=== PATIENT | female | born 1995 | race Caucasian/White ===

== ENCOUNTER 2017-12-22 05:42 | Outpatient (CLI) | payer BC ==
[~2017-12-22 05:42] MED LIST: FRRS300 PO; MTR600X PO
[2017-12-22] MEDS ORDERED: LACTATED RINGER'S 1000ML 1,000 ML IV SCH (07:04)
[2017-12-22] MEDS ORDERED: LACTATED RINGER'S 1000ML 500 ML IV ONE (07:04)
[2017-12-23] MEDS ORDERED: PRENTAB26 PO (09:27)
== END 2017-12-22 10:45 | disposition home or self-care (01) ==
LOC: C.LD 05:42 → C.OPB 05:42
PROVIDERS: ATTEND Obstetrics & Gynecology
DX: O62.9 Abnormality of forces of labor, unspecified (principal); Z3A.00 Weeks of gestation of pregnancy not specified

== ENCOUNTER 2017-12-23 06:33 | Inpatient (IN) | payer BC ==
[~2017-12-23] VITALS: Ht 165.1 cm; Wt 105.4 kg
[2017-12-23] MEDS ORDERED: LACTATED RINGER'S 1000ML 1,000 ML IV PRN (07:00)
[2017-12-23 07:21] LABS: HEMATOCRIT 34.9 % (37-47); HEMOGLOBIN 12.3 g/dL (12.0-16.0); MEAN CELL VOLUME 93.3 fL (80-100); MEAN CORPUSCULAR HEMOGLOBIN 32.9 pg (25-34); MEAN CORPUSCULAR HGB CONC 35.2 g/dl (32-36); MEAN PLATELET VOLUME 10.4 fL (7.4-10.4); PLATELET COUNT 223 K/uL (130-400); RED CELL DISTRIBUTION WIDTH SD 47.6 fL (36.4-46.3); WHITE BLOOD COUNT 15.91 K/uL (4.8-10.8)
[2017-12-23] MEDS ORDERED: EpHEDrine SULFATE INJ 50 MG/ML AMP ONE (07:39)
[2017-12-23] MEDS ORDERED: FENTANYL CITRATE INJ 50 MCG/1 ML 2 ML VIAL ONE (07:39)
[2017-12-23] MEDS ORDERED: BUPIVACAINE 0.25% 30 ML VIAL ONE (07:39)
[2017-12-23] MEDS ORDERED: FENTANYL 2MCG/ML ROPIV 1.25MG/ML 100ML BAG EPI ONE (07:40)
[2017-12-23] MEDS ORDERED: LACTATED RINGER'S 1000ML 1,000 ML IV SCH ×2 (08:00→15:50)
[2017-12-23] MEDS ORDERED: ONDANSETRON INJ 2 MG/ML 2 ML VIAL IV PRN ×2 (08:00→08:45)
[2017-12-23 08:30] VITALS: Ht 165.1 cm; Wt 105.4 kg
[2017-12-23] MEDS ORDERED: NALOXONE HCL INJ 1 MG in SODIUM CHLORIDE 0.9% 1000ML 1,000 ML IV PRN (08:35)
[2017-12-23] MEDS ORDERED: LACTATED RINGER'S 1000ML 500 ML IV PRN ×2 (08:35→10:47)
[2017-12-23] MEDS ORDERED: NALOXONE HCL INJ 0.4 MG/1 ML VIAL/CARP IV PRN (08:45)
[2017-12-23] MEDS ORDERED: DiphenhydrAMINE HCL 50 MG/ML VIAL IV PRN (08:45)
[2017-12-23] MEDS ORDERED: EpHEDrine SULFATE INJ 50 MG/ML AMP IV PRN (08:45)
[2017-12-23] MEDS ORDERED: NALBUPHINE HCL INJ 10 MG/ML AMP IV PRN (08:45)
[2017-12-23] MEDS ORDERED: FENTANYL 2MCG/ML ROPIV 1.25MG/ML 100ML BAG EPI PRN (08:45)
[2017-12-23] MEDS ORDERED: PRENTAB26 PO (09:27)
[2017-12-23] MEDS ORDERED: OXYTOCIN 30 UNITS/500ML NSS IV PRN ×2 (11:00→15:30)
--- NOTE | 2017-12-23 15:20 | Anesthesia Procedure Note ---
Anesthesia Epidural Removal Nt Date & Time Dec 23, 2017 at 15:19 Vital Signs Pain Intensity: 10.0 Notes Mental Status: alert / awake / arousable, participated in evaluation Nausea / Vomiting: adequately controlled Pain: adequately controlled Airway Patency, RR, SpO2: stable & adequate BP & HR: stable & adequate Hydration State: stable & adequate Neuraxial Anesthesia: was administered Anesthetic Complications: no major complications apparent, pt satisfied with anesthetic care Epidural: removed without complications, with tip intact
[2017-12-23] MEDS ORDERED: OXYCODONE/ACETAMINOPHEN 5-325 TAB PO PRN (15:30)
[2017-12-23] MEDS ORDERED: MEASLES, MUMPS & RUBELLA VIRUS VIAL SQ. ONE (15:30)
[2017-12-23] MEDS ORDERED: DIPHTHERIA/TETANUS/PERTUSSIS 0.5 ML SYR/VIAL IM. ONE (15:30)
[2017-12-23] MEDS ORDERED: LANOLIN OINT EXT PRN (15:30)
[2017-12-23] MEDS ORDERED: ACETAMINOPHEN 325 MG TAB PO PRN (15:30)
[2017-12-23] MEDS ORDERED: BENZOCAINE 20% AER SPR 82.5 GM CAN EXT PRN (15:30)
[2017-12-23] MEDS ORDERED: SUPERCREAM 0.870 % 15GM JAR EXT PRN (15:30)
[2017-12-23] MEDS ORDERED: HYDROCORTISONE ACETATE 25 MG SUPP PR PRN (15:30)
--- NOTE | 2017-12-23 16:02 | DELIVERY SUMMARY ---
DATE OF OPERATION: 12/23/2017 TIME OF DELIVERY OF BABY: 1458 p.m. TIME OF DELIVERY OF PLACENTA: 1515 p.m. DETAILS OF DELIVERY: The patient was found to be fully dilated and desired to push. She pushed for about 15 minutes and delivered the head without difficulty. Shoulders were delivered with minimal traction. Baby was handed off to the mother where mouth and nose were suctioned. Cord was clamped x2 and cut at 1 minute delay and then cord blood was obtained and it was a 3-vessel cord. Vagina and perineum were checked for lacerations. There was a second degree perineal laceration at the posterior fourchette. It was confirmed to be second-degree by rectal exam. Gloves were changed. The perineal body muscles were reapproximated with 2-0 Vicryl with figure of eight sutures x2 and then the vaginal mucosa and then the skin in a subcuticular fashion. Then, placenta was found to be in the vagina, delivered spontaneously as intact and complete. Uterus was explored and found to be empty. Lower segment was cleared off all clots and debris. Fundus was firm. EBL was 300. Mom and baby tolerated the procedure well. Sponge, lap, needle counts were correct x3. Baby was a viable female . Apgars 8/9. Weight was 3767 gr. No complications happened and I was present during the whole procedure. I attest to the content of the Intraoperative Record and any orders documented therein. Any exceptions are noted below. MTDD
[2017-12-23 18:15] VITALS: BP 126/69; PULSE 97; TEMP 36.3
[2017-12-23] MEDS: DOCUSATE SODIUM 100 MG CAP PO SCH (20:07)
[2017-12-23] MEDS: IBUPROFEN 600 MG TAB PO PRN (22:02)
[2017-12-24] VITALS: BP 128/77; PULSE 83; TEMP 37.2
[2017-12-24 04:15] VITALS: BP 115/70; PULSE 80; TEMP 37.2; O2SAT 98
[2017-12-24] MEDS: IBUPROFEN 600 MG TAB PO PRN ×4 (04:33→15:45)
[2017-12-24 06:46] LABS: HEMATOCRIT 30.2 % (37-47); HEMOGLOBIN 10.4 g/dL (12.0-16.0)
[2017-12-24 08:10] VITALS: BP 119/71; PULSE 80; TEMP 37.1; O2SAT 97
[2017-12-24] MEDS: PRENATAL VITAMIN TAB PO SCH (08:11)
[2017-12-24] MEDS: FERROUS SULFATE 325 MG TAB PO SCH (08:11)
[2017-12-24] MEDS: DOCUSATE SODIUM 100 MG CAP PO SCH ×2 (08:11→19:51)
--- NOTE | 2017-12-24 09:44 | OB/GYN Progress Note ---
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 Patient is seen and examined. She feels well, no complaints. Ambulating without dizziness Voiding without difficulty Tolerating regular diet with out N&V Bleeding is minimal No fever/ chills/ CP/ SOB/ N&V/ Leg pain Breast feeding without problems Date Time Temp Pulse Resp B/P (MAP) Pulse Ox O2 Delivery O2 Flow Rate FiO2 12/24/17 08:10 97 Room Air 12/24/17 08:10 37.1 80 20 119/71 (87) 97 Room Air 12/24/17 04:15 37.2 80 18 115/70 (85) 98 12/24/17 00:00 Room Air 12/24/17 00:00 37.2 83 16 128/77 (94) 12/23/17 18:15 Room Air 12/23/17 18:15 36.3 97 20 126/69 (88) Room Air Last 24 Hours Test 12/24/17 06:09 Hemoglobin 10.4 g/dL Hematocrit 30.2 % PE: General: Alert, orientedx3, NAD Abd: soft, NT, fundus firm, below Umbilicus Perineum intact, Lochia rubra minimal Ext; NT, no edema AP: 22 yo s/p , ppd# 1 VSS Afebrile doing well Continue routine care All questions were answered D/C home tomorrow
[2017-12-24 12:00] VITALS: BP 126/72; PULSE 80; TEMP 36.5; O2SAT 98
--- NOTE | 2017-12-24 13:53 | Discharge Instructions ---
Discharge Instructions Date of Service Dec 24, 2017. Admission Reason for Admission: LABOR Discharge Discharge Diagnosis / Problem: Discharge Goals Goal(s): Routine recovery after delivery Medications Continue Dispensed Medications: lansinoh Activity Recommendations Activity Limitations: as noted below ACTIVITY RECOMMENDATIONS: * Gradual return to full activity over the next 2-3 weeks. * No lifting - nothing heavier than baby over the next 2-3 weeks. * Do not engage in vigorous exercise, sexual activity or sports until cleared by your physician. * Do not drive or operate any motorized equipment until cleared by your physician. * You may shower/bathe daily. BREAST CARE: If you are not breast feeding: * Wear a supportive bra 24 hours a day for one to two weeks. * Avoid stimulating your breasts and nipples as much as possible during the first few weeks after delivery. * When taking a shower, have the warm water hit your back, not breasts. * When your breasts feel full, apply ice packs. Usually three to four times a day helps ease the discomfort. * Take a mild pain medication (Tylenol/Motrin) when you are uncomfortable. If breast feeding: * Use breast milk to lubricate nipples. Lansinoh cream may be used for sore nipples. You do not need to remove cream prior to breast feeding. If using a different brand of cream, check the label for directions regarding removal of cream prior to nursing. * Wear a supportive bra. * If having problems with breasts or breast feeding, call a it security consultant or your health care provider. EPISIOTOMY CARE: After delivery, if you have an episiotomy (stitches), the following steps will ease discomfort and aid healing. * For the first 24 hours after delivery, place ice packs next to your episiotomy to help reduce swelling. * After the first 24 hour-period, sitz baths, either portable or in the tub, are suggested. A shower with a shower arm sprayed over the episiotomy may be comforting. * Micki care should be done after each voiding and bowel movement. Squirt warm water from a plastic bottle over the perineum (region of the body between the anus and urinary opening) and pat dry. * Use Dermoplast to ease discomfort. Shake container. [place] directly over the episiotomy. * Place a Tucks on a clean sanitary pad next to your episiotomy. OVER THE COUNTER MEDICATION: * For discomfort or pain, you may use Acetaminophen (Tylenol), Ibuprofen (Advil ), or Naproxen (Aleve) following the package directions. * For constipation you may use Colace following the package directions. SPECIAL CARE INSTRUCTIONS: When you are discharged from the hospital, it is important for you to follow the instructions listed below: * During the first week at home, you should be able to care for yourself and your baby. In addition, the usual light household activities are encouraged. * Limit your activities to the way you feel. Do not try to clean the house or move furniture. Be sensible. * If you actively engage in sports and have done so up until the time of your delivery, you may resume these activities as soon as you feel able. This may take up to one month or even longer. Use good judgment. * Continue to take your vitamins for at least six weeks after the of your baby. * Your diet need not be limited unless you were on a special diet before your delivery. Breast-feeding mothers need around 2500 calories per day and at least 64-80 ounces of fluid per day (8 to 10 glasses). * You should eat foods from the four major food groups. Crash diets or fad diets are to be avoided. Eating lean meats, fresh fruits and vegetables, low-fat dairy products, high fiber foods and a regular exercise program, will help you get back to your pre- weight without putting your health at risk. * Constipation is sometimes a problem after delivery. Take a mild laxative as needed. If breast feeding, Milk of Magnesia is acceptable to use. You may use a suppository or Fleets enema if no episiotomy. * A daily shower or tub bath is suggested. Be sure to thoroughly and gently dry the perineum. * A bloody vaginal discharge will usually continue until around four weeks post . A small amount of bleeding may continue for as long as six weeks. Vaginal discharge changes from the bright red bleeding after delivery to pink then brownish and finally yellowish-pink before becoming white and disappearing. * Bleeding may increase with activity. Your first period may come in 4-8 weeks. If you are breast feeding, your period may be delayed even longer. * [place] (sex) can begin whenever both you and your partner feel comfortable and do not have any form of genital infection. It is recommended that you wait until after your return appointment and discuss with your physician. If you have questions, please talk to your health care practitioner. A condom should be used to prevent infection and . * Foreplay, gentle intercourse and lubrication is very important the first several times to prevent pain. A water-based lubricant such as K-Y jelly or Astroglide may be used. * Tampons may be used six weeks after delivery. * Douching should be avoided for 6 weeks after delivery. * If you have RH negative blood and your baby is RH positive, you will receive RHOGAM by injection prior to discharge. The nurse will give you a card to keep with you that has the date and place that you received RHOGAM after delivery. * During your care, you had a Rubella screen done to check for the presence of rubella antibodies in your blood. If your test was negative, you will receive a Rubella vaccine prior to discharge. This vaccine may cause a fever, soreness at the injection site and flu-like symptoms. If these symptoms persist, notify your health care practitioner. is not advised for three months after a Rubella vaccine. There is a higher chance of having a baby with defects if conceived within three months of getting the vaccine. * If you were discharged 24 hours from delivery or before 48 hours: Visiting nurses will come to your home 48 hours after discharge to assess you and your baby. The visiting nurse will meet with you while you are in the hospital to arrange a time and get directions to your home. * Verbalizes understanding of car seat law as reviewed with patient nursing. * Car Seat hand-out given and reviewed with patient by nursing. * Shaken baby information reviewed with patient by nursing. Call you doctor if: * Heavy bleeding (saturating several pads an hour) or passing clots the size of your fist. * A fever >101 degrees F (38.3 degrees C) on two occasions four hours apart and/or chills. * Unusual pain in the pelvic or vaginal areas. * "Baby Blues" lasting longer than two weeks. If you have any questions or concerns, call your health care practitioner at . FOLLOW-UP VISIT: * Please call the office at to schedule a 6 week examination. It is important you keep this appointment. * It is important for you to make arrangements for either yearly or twice yearly check-ups thereafter. . Current Hospital Diet Patient's current hospital diet: Regular OB Diet Discharge Diet Recommended Diet: Regular Diet Pending Studies Studies pending at discharge: no Medical Emergencies . Who to Call and When: Medical Emergencies: If at any time you feel your situation is an emergency, please call 911 immediately. . Non-Emergent Contact Non-Emergency issues call your: Specialist Call Non-Emergent contact if: temperature is above 100.5, your pain is not controlled, your pain is worsening, you have any medication questions . . "Provider Documentation" section prepared by Jose A Austin. .
[2017-12-24 15:30] VITALS: BP 129/84; PULSE 80; TEMP 36.9
[2017-12-24] MEDS ORDERED: BISACODYL 5 MG TABEC PO SCH (20:00)
[2017-12-24 23:25] VITALS: BP 125/75; PULSE 85; TEMP 36.6; O2SAT 99
[2017-12-25] MEDS ORDERED: BISACODYL 10 MG SUPP PR PRN (07:00)
[2017-12-25 07:46] LABS: HEMATOCRIT 31.9 % (37-47); MEAN CELL VOLUME 94.7 fL (80-100); MEAN CORPUSCULAR HEMOGLOBIN 32.6 pg (25-34); MEAN CORPUSCULAR HGB CONC 34.5 g/dl (32-36); MEAN PLATELET VOLUME 10.3 fL (7.4-10.4); PLATELET COUNT 220 K/uL (130-400); RED CELL DISTRIBUTION WIDTH CV 14.2 % (11.5-14.5); RED CELL DISTRIBUTION WIDTH SD 48.9 fL (36.4-46.3); WHITE BLOOD COUNT 14.68 K/uL (4.8-10.8)
[2017-12-25 08:05] VITALS: BP 130/82; PULSE 75; TEMP 36.9
[2017-12-25] MEDS: DOCUSATE SODIUM 100 MG CAP PO SCH (08:18)
[2017-12-25] MEDS: FERROUS SULFATE 325 MG TAB PO SCH (08:18)
[2017-12-25] MEDS: PRENATAL VITAMIN TAB PO SCH (08:18)
--- NOTE | 2017-12-25 08:36 | OB/GYN Progress Note ---
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 Subjective conversation w/ patient, physical exam Ambulation: ambulating normally Voiding: no voiding problems Passing Gas: Yes Diet Tolerance: Regular Diet Lochia: Small Feeding Type: Breast Feeding Pain: 09/06 Notes: Doing well, no concerns. Pain well controlled. Tolerating regular diet. Ambulating without difficulty. Would like to go home today. Objective Vital Signs Date Time Temp Pulse Resp B/P (MAP) Pulse Ox O2 Delivery O2 Flow Rate FiO2 12/24/17 23:25 36.6 85 18 125/75 (92) 99 Room Air 12/24/17 23:25 99 Room Air 12/24/17 15:30 Room Air 12/24/17 15:30 36.9 80 20 129/84 (99) Room Air 12/24/17 12:00 36.5 80 18 126/72 (90) 98 Room Air Physical Exam General Appearance: WELL-APPEARING Respiratory/Chest: chest non-tender, lungs clear Cardiovascular: regular rate, rhythm Abdomen: normal bowel sounds, soft Fundus: Firm Extremities: normal range of motion, non-tender, no calf tenderness Laboratory Results Last 24 Hours Test 12/25/17 07:15 White Blood Count 14.68 K/uL Red Blood Count 3.37 M/uL Hemoglobin 11.0 g/dL Hematocrit 31.9 % Mean Corpuscular Volume 94.7 fL Mean Corpuscular Hemoglobin 32.6 pg Mean Corpuscular Hemoglobin Concent 34.5 g/dl RDW Standard Deviation 48.9 fL RDW Coefficient of Variation 14.2 % Platelet Count 220 K/uL Mean Platelet Volume 10.3 fL Assessment and Plan Post- Day Number: 2 Continue Routine Care: -D/C home today -F/U in 6 weeks.
[2017-12-25 10:30] VITALS: BP_DIAS 82; PULSE 75; TEMP 36.9
== END 2017-12-25 10:30 | disposition home or self-care (01) | DRG 775 ==
LOC: C.OPB 06:33 → C.LD 06:35 → C.OPB 07:11 → C.OBG 18:18
PROVIDERS: ADMIT Obstetrics & Gynecology; ATTEND Obstetrics & Gynecology
PROC: 10E0XZZ Delivery of Products of Conception, External Approach (ICD-10-PCS; principal; 2017-12-23)
PROC: 0KQM0ZZ Repair Perineum Muscle, Open Approach (ICD-10-PCS; principal; 2017-12-23)
DX: O48.0 Post-term pregnancy (principal); O70.1 Second degree perineal laceration during delivery; Z37.0 Single live birth; Z3A.40 40 weeks gestation of pregnancy

== ENCOUNTER 2019-09-17 07:38 | Inpatient (IN) ==
[2019-09-17] MEDS ORDERED: OXYTOCIN 30 UNITS/500 ML BAG IV PRN ×3 (10:10→22:22)
--- NOTE | 2019-09-17 10:15 | Obstetrical Progress Note ---
Date of Service September 17, 2019 Subjective PT DOING WELL FHR; CAT1 Ctx None VE /-2 will start pitocin pt agrees to plan Results & Data Vital Signs (Past 12 Hours) Vital Signs Temp Pulse Resp BP 09/17/19 08:10 82 120/57 L 09/17/19 07:48 36.8 C 20
[2019-09-17] MEDS: LACTATED RINGER'S 1,000 ML IV PRN ×3 (10:28→21:38)
[2019-09-17 10:29] LABS: Hemoglobin 11.8 g/dL (12.0-16.0); Mean Corpuscular Hemoglobin 30.5 pg (25-34); Mean Corpuscular Volume 90.4 fL (80-100); Mean Platelet Volume 10.2 fL (7.4-10.4); Platelet Count 231 K/uL (130-400); RDW Coefficient of Variation 14.4 % (11.5-14.5); RDW Standard Deviation 47.2 fL (36.4-46.3); Red Blood Count 3.87 M/uL (4.2-5.4); White Blood Count 17.04 K/uL (4.8-10.8)
[2019-09-17 10:36] LABS: Mean Corpuscular Hgb Conc 33.7 g/dL (32-36)
[2019-09-17] MEDS ORDERED: ePHEDrine sulfate 50 MG/ML AMP ONE (15:45)
[2019-09-17] MEDS ORDERED: fentaNYL citrate 100 MCG/2 ML VIAL ONE (15:45)
[2019-09-17] MEDS ORDERED: BUPIVACAINE 0.25% 30 ML VIAL ONE (15:45)
[2019-09-17] MEDS ORDERED: fentaNYL 2MCG/ML ROPIV 1.25MG/ML 100 ML BAG EPI ONE (15:45)
--- NOTE | 2019-09-17 16:13 | Anesthesiology Consultation ---
Date of Service September 17, 2019 Assessment & Plan (1) Term : (2) Encounter for pre-operative examination: Chart Review Chart Review: Acceptable Risk for Labor Epidural History Height/Weight Height: 5 ft 6 in Weight: 99.79 kg Allergies Allergy/AdvReac Type Severity Reaction Status Date / Time No Known Allergies Allergy Unverified 05/17/15 01:40 Medications Home Medications Medication Instructions Recorded Confirmed Last Taken vit-iron fum-folic ac 1 tab PO DAILY 09/17/19 09/17/19 09/16/19 22:00 [ Vitamin] Active Medications Generic Name Dose Route Start Last Admin Trade Name Freq PRN Reason Stop Dose Admin Lactated Ringer's 1,000 mls @ 125 mls/hr 09/17/19 10:10 09/17/19 15:42 Lr IV 09/19/19 10:09 999 mls/hr .Q8H PRN Infusion L&D Protocol Protocol Oxytocin 30 units in 500 mls @ 8 mls/hr 09/17/19 10:10 09/17/19 15:30 Pitocin IV 09/19/19 10:09 0.48 units/hr .Q24H PRN 8 mls/hr Labor Induction/Augmentation Titration Protocol 0.48 UNITS/HR Past Medical History Medical History (Updated 09/17/19 @ 16:12 by Rakan Henson MD) Term Social History Smoking Status: Former smoker Do You Dip or Chew Tobacco: No Hx Alcohol Use: No Hx Substance Use: No Physical Exam Vital Signs Last Vital Signs Temp 36.7 C 09/17/19 14:49 Pulse 69 09/17/19 16:06 Resp 20 09/17/19 15:30 BP 110/65 09/17/19 15:57 Pulse Ox 97 09/17/19 16:06 Testing Laboratory Results 09/17/19 10:19
[2019-09-17] MEDS ORDERED: NALOXONE HCL 0.4 MG/1 ML VIAL/CARP IV PRN (16:26)
[2019-09-17] MEDS ORDERED: ONDANSETRON INJ 2 MG/ML 2 ML VIAL IV PRN (16:26)
[2019-09-17] MEDS ORDERED: ePHEDrine sulfate 50 MG/ML AMP IV PRN (16:26)
[2019-09-17] MEDS ORDERED: NALOXONE HCL 1 MG in SODIUM CHLORIDE 0.9% 1000ML 1,000 ML IV PRN (16:26)
[2019-09-17] MEDS ORDERED: fentaNYL 2MCG/ML ROPIV 1.25MG/ML 100 ML BAG EPI PRN (16:31)
--- NOTE | 2019-09-17 20:06 | Obstetrical Progress Note ---
Date of Service September 17, 2019 Subjective Pt doing well FHR; CAT1 Pit; 6MU Ctx 1-3mim VE; /-2 AROM- clear Results & Data Vital Signs (Past 12 Hours) Vital Signs Temp Pulse Resp BP Pulse Ox 09/17/19 20:02 88 123/67 09/17/19 20:01 98 H 100 09/17/19 19:56 84 100 09/17/19 19:51 77 99 09/17/19 19:46 81 118/59 L 99 09/17/19 19:41 73 100 09/17/19 19:36 73 100 09/17/19 19:32 73 118/63 09/17/19 19:31 69 98 09/17/19 19:26 78 99 09/17/19 19:21 87 98 09/17/19 19:16 79 95/52 L 97 09/17/19 19:11 75 96 09/17/19 19:06 74 97 09/17/19 19:01 74 94/50 L 98 09/17/19 19:00 36.7 C 20 09/17/19 18:56 74 97/52 L 98 09/17/19 18:52 75 110/53 L 09/17/19 18:51 75 97 09/17/19 18:46 77 113/56 L 96 09/17/19 18:41 70 96 09/17/19 18:40 64 110/55 L 09/17/19 18:38 67 107/57 L 09/17/19 18:36 72 103/57 L 96 09/17/19 18:34 76 101/52 L 09/17/19 18:32 72 107/55 L 09/17/19 18:31 77 99 09/17/19 18:30 75 20 115/58 L 09/17/19 18:28 68 111/56 L 09/17/19 18:26 72 115/62 97 09/17/19 18:21 71 96 09/17/19 18:19 66 111/57 L 09/17/19 18:16 67 98 09/17/19 18:11 85 99 09/17/19 18:06 74 108/55 L 96 09/17/19 18:01 71 96 09/17/19 18:00 20 09/17/19 17:56 77 97 09/17/19 17:51 83 100 09/17/19 17:50 72 115/53 L 09/17/19 17:46 78 98 09/17/19 17:41 85 98 09/17/19 17:36 78 98 09/17/19 17:34 73 117/63 09/17/19 17:31 78 96 09/17/19 17:30 20 09/17/19 17:26 85 97 09/17/19 17:21 77 97 09/17/19 17:19 83 129/63 09/17/19 17:17 73 125/60 09/17/19 17:16 80 97 09/17/19 17:12 69 127/60 09/17/19 17:11 71 96 09/17/19 17:06 75 124/56 L 97 09/17/19 17:01 73 111/56 L 96 09/17/19 17:00 36.5 C 20 09/17/19 16:56 82 117/58 L 96 09/17/19 16:51 71 97 09/17/19 16:50 71 117/56 L 09/17/19 16:48 75 128/59 L 09/17/19 16:47 70 20 119/56 L 09/17/19 16:46 72 98 09/17/19 16:45 83 83/51 L 09/17/19 16:42 80 110/57 L 09/17/19 16:41 75 97 09/17/19 16:40 75 122/56 L 09/17/19 16:38 84 117/56 L 09/17/19 16:36 72 124/57 L 97 09/17/19 16:35 76 118/58 L 09/17/19 16:32 20 130/59 L 09/17/19 16:31 67 98 09/17/19 16:30 71 120/56 L 09/17/19 16:26 72 98 09/17/19 16:21 96 H 100 09/17/19 16:16 102 H 99 09/17/19 16:11 72 97 09/17/19 16:06 69 97 09/17/19 16:01 72 98 09/17/19 15:57 79 110/65 09/17/19 15:56 77 98 09/17/19 15:30 20 09/17/19 15:29 80 140/66 09/17/19 14:49 36.7 C 76 20 115/66 09/17/19 14:35 83 115/57 L 09/17/19 13:34 76 127/59 L 09/17/19 12:38 77 111/55 L 09/17/19 12:37 36.8 C 20 09/17/19 11:31 72 116/57 L 09/17/19 10:34 85 128/65 09/17/19 08:10 82 120/57 L
[2019-09-17] MEDS ORDERED: METHYLERGONOVINE MALEATE 0.2 MG/ML AMP ONE (22:15)
[2019-09-17] MEDS ORDERED: SUPERCREAM 0.870% 15 GM JAR EXT PRN (22:22)
[2019-09-17] MEDS ORDERED: METHYLERGONOVINE MALEATE 0.2 MG/ML AMP IM ONE (22:22)
[2019-09-17] MEDS ORDERED: miSOPROStoL 200 MCG TAB PR ONE (22:22)
[2019-09-17] MEDS ORDERED: DIPHTHERIA/TETANUS/PERTUSSIS 0.5 ML SYR/VIAL IM ONE (22:22)
[2019-09-17] MEDS ORDERED: HYDROCORTISONE ACETATE 25 MG SUPP PR PRN (22:22)
[2019-09-17] MEDS ORDERED: ACETAMINOPHEN 325 MG TAB PO PRN (22:22)
[2019-09-17] MEDS ORDERED: bisacodyL 10 MG SUPP PR PRN (22:22)
[2019-09-17] MEDS ORDERED: BENZOCAINE 20% AER SPR 82.5 GM CAN EXT PRN (22:22)
[2019-09-18 06:31] LABS: Hematocrit (blood only) 33.6 % (37-47); Hemoglobin 11.3 g/dL (12.0-16.0); Mean Corpuscular Hemoglobin 30.4 pg (25-34); Mean Corpuscular Hgb Conc 33.6 g/dL (32-36); Mean Corpuscular Volume 90.3 fL (80-100); Mean Platelet Volume 10.3 fL (7.4-10.4); Platelet Count 225 K/uL (130-400); RDW Coefficient of Variation 14.2 % (11.5-14.5); RDW Standard Deviation 46.7 fL (36.4-46.3); Red Blood Count 3.72 M/uL (4.2-5.4); White Blood Count 17.68 K/uL (4.8-10.8)
--- NOTE | 2019-09-18 08:00 | Delivery Summary ---
DATE OF OPERATION: 09/17/2019 The patient delivered a live infant in left occiput anterior presentation. There was a loose nuchal cord which was easily reduced. was delivered and cord was clamped after 1 minute. Cord blood was obtained. Placenta spontaneously delivered. Inspection of the placenta shows normal gross looking placenta with 3-vessel cord. Inspection of the perineum showed no laceration or tears. Estimated blood loss is 500 mL. Baby and mother are doing well in recovery. All instruments were removed from the vagina including retractors, sponges, and accounted for x2. I attest to the content of the Intraoperative Record and any orders documented therein. Any exception s are noted below.
[2019-09-18] MEDS: FERROUS SULFATE 325 MG TAB PO SCH (08:22)
[2019-09-18] MEDS: DOCUSATE SODIUM 100 MG CAP PO SCH ×2 (08:23→19:35)
[2019-09-18] MEDS: IBUPROFEN 600 MG TAB PO PRN ×2 (08:23→19:35)
[2019-09-18] MEDS: PRENATAL VITAMIN 1 TAB PO SCH (08:23)
--- NOTE | 2019-09-18 09:52 | Anesthesia Procedure Note ---
Date of Service September 18, 2019 Anesthesia Post Epidural Note Vital Signs Vital Signs: Temp Pulse Resp BP Pulse Ox 37.2 C 72 18 125/69 98 09/18/19 08:15 09/18/19 08:15 09/18/19 08:15 09/18/19 08:15 09/18/19 08:15 Pain Intensity Abdomen: Pain Intensity: 2 Notes Mental Status: alert / awake / arousable Nausea / Vomiting: adequately controlled Pain: adequately controlled Airway Patency, RR, SpO2: stable & adequate BP & HR: stable & adequate Hydration State: stable & adequate Neuraxial Anesthesia: was administered and sensory block is resolving Anesthetic Complications: no major complications apparent and Pt Satisfied with anesthetic care Epidural: Removed without complications and With tip intact
--- NOTE | 2019-09-18 10:40 | Obstetrical Progress Note ---
Date of Service September 18, 2019 Subjective Patient is seen and examined. She feels well, no complaints. Ambulating without dizziness Voiding without difficulty Tolerating regular diet with out N&V Bleeding is minimal No fever/ chills/ CP/ SOB/ N&V/ Leg pain Breast feeding without problems Vital Signs Temp Pulse Pulse Pulse Resp BP BP 09/18/19 08:15 37.2 C 72 18 125/69 09/18/19 03:50 37.3 C 87 18 119/74 09/18/19 00:55 37.2 C 83 18 127/73 09/18/19 00:25 36.7 C 105 H 18 129/60 09/18/19 00:10 78 124/57 L 09/17/19 23:55 72 18 130/60 09/17/19 23:40 80 135/59 L 09/17/19 23:36 85 09/17/19 23:31 83 09/17/19 23:26 81 09/17/19 23:25 81 18 117/56 L 09/17/19 23:21 87 09/17/19 23:16 81 09/17/19 23:11 86 117/58 L 09/17/19 23:10 18 09/17/19 23:06 88 09/17/19 23:01 88 09/17/19 22:56 92 H 09/17/19 22:55 18 09/17/19 22:51 103 H 09/17/19 22:46 75 09/17/19 22:41 91 H Pulse Ox 09/18/19 08:15 98 09/18/19 03:50 96 09/18/19 00:55 98 09/18/19 00:25 09/18/19 00:10 09/17/19 23:55 09/17/19 23:40 09/17/19 23:36 98 09/17/19 23:31 97 09/17/19 23:26 98 09/17/19 23:25 09/17/19 23:21 98 09/17/19 23:16 98 09/17/19 23:11 98 09/17/19 23:10 09/17/19 23:06 98 09/17/19 23:01 96 09/17/19 22:56 96 09/17/19 22:55 09/17/19 22:51 96 09/17/19 22:46 96 09/17/19 22:41 98 Lab Results 09/17/19 09/18/19 Range/Units 10:19 06:09 WBC 17.04 H 17.68 H (4.8-10.8) K/uL RBC 3.87 L 3.72 L (4.2-5.4) M/uL Hgb 11.8 L 11.3 L (12.0-16.0) g/dL Hct 35.0 L 33.6 L (37-47) % MCV 90.4 90.3 (80-100) fL MCH 30.5 30.4 (25-34) pg MCHC 33.7 33.6 (32-36) g/dL RDW Std Deviation 47.2 H 46.7 H (36.4-46.3) fL RDW Coeff of [place] 14.4 14.2 (11.5-14.5) % Plt Count 231 225 (130-400) K/uL MPV 10.2 10.3 (7.4-10.4) fL PE: General: Alert, orientedx3, NAD Abd: soft, NT, fundus firm, below Umbilicus Perineum intact, Lochia rubra minimal Ext; NT, no edema AP: 24 yo s/p , ppd# 1 VSS Afebrile doing well CBC in am Continue routine care All questions were answered D/C home tomorrow Results & Data Vital Signs (Past 12 Hours) Vital Signs Temp Pulse Pulse Pulse Resp BP BP 09/18/19 08:15 37.2 C 72 18 125/69 09/18/19 03:50 37.3 C 87 18 119/74 09/18/19 00:55 37.2 C 83 18 127/73 09/18/19 00:25 36.7 C 105 H 18 129/60 09/18/19 00:10 78 124/57 L 09/17/19 23:55 72 18 130/60 09/17/19 23:40 80 135/59 L 09/17/19 23:36 85 09/17/19 23:31 83 09/17/19 23:26 81 09/17/19 23:25 81 18 117/56 L 09/17/19 23:21 87 09/17/19 23:16 81 09/17/19 23:11 86 117/58 L 09/17/19 23:10 18 09/17/19 23:06 88 09/17/19 23:01 88 09/17/19 22:56 92 H 09/17/19 22:55 18 09/17/19 22:51 103 H 09/17/19 22:46 75 09/17/19 22:41 91 H 09/17/19 22:40 88 18 133/60 Pulse Ox 09/18/19 08:15 98 09/18/19 03:50 96 09/18/19 00:55 98 09/18/19 00:25 09/18/19 00:10 09/17/19 23:55 09/17/19 23:40 09/17/19 23:36 98 09/17/19 23:31 97 09/17/19 23:26 98 09/17/19 23:25 09/17/19 23:21 98 09/17/19 23:16 98 09/17/19 23:11 98 09/17/19 23:10 09/17/19 23:06 98 09/17/19 23:01 96 09/17/19 22:56 96 09/17/19 22:55 09/17/19 22:51 96 09/17/19 22:46 96 09/17/19 22:41 98 09/17/19 22:40
[2019-09-18] MEDS ORDERED: bisacodyL 5 MG TABEC PO SCH (20:00)
[2019-09-19 06:28] LABS: Basophils # (auto) 0.05 K/uL (0-0.2); Basophils % (auto) 0.4 %; Eosinophils # (auto) 0.18 K/uL (0-0.5); Eosinophils % (auto) 1.5 %; Hematocrit (blood only) 32.7 % (37-47); Hemoglobin 10.8 g/dL (12.0-16.0); Immature Granulocytes # (auto) 0.13 K/uL (0.00-0.02); Immature Granulocytes % (auto) 1.1 %; Lymphocytes # (auto) 3.25 K/uL (1.2-3.4); Lymphocytes % (auto) 27.9 %; Mean Corpuscular Hemoglobin 30.3 pg (25-34); Mean Corpuscular Volume 91.6 fL (80-100); Mean Platelet Volume 10.4 fL (7.4-10.4); Monocytes # (auto) 0.95 K/uL (0.11-0.59); Monocytes % (auto) 8.2 %; Neutrophils # (auto) 7.07 K/uL (1.4-6.5); Neutrophils % (auto) 60.9 %; Platelet Count 221 K/uL (130-400); RDW Coefficient of Variation 14.4 % (11.5-14.5); RDW Standard Deviation 48.4 fL (36.4-46.3); Red Blood Count 3.57 M/uL (4.2-5.4); White Blood Count 11.63 K/uL (4.8-10.8)
[2019-09-19] MEDS: DOCUSATE SODIUM 100 MG CAP PO SCH (08:24)
[2019-09-19] MEDS: PRENATAL VITAMIN 1 TAB PO SCH (08:24)
[2019-09-19] MEDS: FERROUS SULFATE 325 MG TAB PO SCH (08:24)
--- NOTE | 2019-09-19 10:04 | Obstetrical Progress Note ---
Date of Service September 19, 2019 Subjective doing well passing gas tolerating diet Physical Exam Constitutional: WD/WN, vitals as above comfortable abdomen soft and non- tender fundus fir no edema neg Aubrie's for discharge today Results & Data Vital Signs (Past 12 Hours) Vital Signs Temp Pulse Resp BP 09/19/19 00:30 36.4 C L 67 18 126/59 L Laboratory Results Laboratory Results - last 72 hr 09/17/19 09/18/19 09/19/19 10:19 06:09 05:59 WBC 17.04 H 17.68 H 11.63 H RBC 3.87 L 3.72 L 3.57 L Hgb 11.8 L 11.3 L 10.8 L Hct 35.0 L 33.6 L 32.7 L MCV 90.4 90.3 91.6 MCH 30.5 30.4 30.3 MCHC 33.7 33.6 33.0 RDW Std Deviation 47.2 H 46.7 H 48.4 H RDW Coeff of [place]ol[place] 14.4 14.2 14.4 Plt Count 231 225 221 MPV 10.2 10.3 10.4 Immature Gran % (Auto) 1.1 Neut % (Auto) 60.9 Lymph % (Auto) 27.9 [place] % (Auto) 8.2 Eos % (Auto) 1.5 Baso % (Auto) 0.4 Immature Gran # (Auto) 0.13 H Neut # (Auto) 7.07 H Lymph # (Auto) 3.25 [place] # (Auto) 0.95 H Eos # (Auto) 0.18 Baso # (Auto) 0.05
== END 2019-09-19 18:30 | disposition home or self-care (01) | DRG 807 ==
LOC: 4S1 07:38 → 4S2 09-18 00:59